=== PATIENT | female | born 1990 | race Caucasian/White ===

== ENCOUNTER → 2021-05-09 | Outpatient (CLI) | payer BC ==
[~2021-05-09] MED LIST: ACYCLOVIR 800800 MG PO; AMOXICILLIN 50500 M1; NORCO 5-325 TA1 EACH PO; ULTRAM 50MG TAB50 MG PO; ZOFRAN ODT4 MG PO
== END ==
LOC: ULTRA 15:09
PROVIDERS: ATTEND Nurse Practitioner
DX: N85.4 Malposition of uterus (principal)